=== PATIENT | female | born 1990 ===

== ENCOUNTER 2021-09-24 05:38 | Emergency (ER) | payer SELFPAY ==
[2021-09-24 06:23] VITALS: BP 122/77
[2021-09-24 06:38] LABS: Bilirubin,Urine NEG (Negative); Blood,Urine NEG (Negative); Color,Urine Yellow (Yellow); Urobilinogen,Urine < 2.0 mg/dL (<2.0)
[2021-09-24 06:41] LABS: Bacteria,Urine 1+ /HPF (Negative); Mucus,Urine 3+ /HPF
[2021-09-24 07:10] LABS: Amphetamine Screen,Urine PRESUMPTIVE NEGATIVE; Benzodiazepines Screen,Urine PRESUMPTIVE NEGATIVE; Cannabinoid Screen,Urine PRESUMPTIVE POSITIVE; Cocaine Screen,Urine PRESUMPTIVE NEGATIVE; Methadone Screen,Urine PRESUMPTIVE NEGATIVE; Opiate Screen,Urine PRESUMPTIVE NEGATIVE
--- NOTE | 2021-09-24 10:48 | Electrocardiograph Report ---
[facility] Test Date: 2021-09-24 Test Time: 06:23:00 Pat Name: ADEN LOUISE Department: Room: Gender: F Analytical Chemist: Ehsan CA : 1990 Requested By: DHEERAJ MCCOY Order Number: [id number] Reading MD: Lucien Watson Measurements Intervals [place] Rate: 61 P: 61 DC: 113 QRS: 69 QRSD: 70 T: 44 QT: 409 QTc: 413 Interpretive Statements Sinus rhythm Probable left atrial enlargement No previous ECG available for comparison Electronically Signed On 09-24-2021 10:48:20 EDT by Lucien Watson
== END 2021-09-25 07:32 | disposition left against medical advice (07) ==
LOC: ED 05:38
DX: R10.9 Unspecified abdominal pain (principal); R11.10 Vomiting, unspecified; Z53.21 Procedure and treatment not carried out due to patient leaving prior to being seen by health care provider
CPT/HCPCS: 80307; 81001; 87086; 93005